=== PATIENT | female | born 1960 | race Caucasian/White ===

== ENCOUNTER 2016-09-05 07:14 | Inpatient (IN) ==
[2016-09-05] MEDS ORDERED: IOPAMIDOL 100 ML BOTTLE IV ONE (07:15)
[2016-09-05] MEDS ORDERED: 0.9 % SODIUM CHLORIDE 1,000 ML IV ONE ×3 (07:40→11:13)
[2016-09-05] MEDS ORDERED: ONDANSETRON 4 MG/2 ML VIAL IV ONE (08:05)
--- NOTE | 2016-09-05 08:09 | Emergency Department Note ---
General Adult HPI - General Chief complaint: Weakness Stated complaint: Weakness Time Seen by Provider: 09/05/16 08:03 Source: patient Mode of arrival: ambulatory Limitations: no limitations - History of Present Illness HPI Narrative: 56-year-old female comes in for elevated fever since the 11th or 5 days now. These are intermittent and cause aches myalgias. She complains of a headache as well but no cough congestion. Has some nausea but no vomiting. No diarrhea but she does complain of some recent constipation but she has IBS history. She is due for colonoscopy next week. Additionally she is hepatitis C positive and starting Harvoni soon. Did not get a flu shot last year - Related Data Previous Rx's Medication Instructions Recorded alprazolam 1 mg tablet 1 mg PO TID PRN 30 Days 05/17/16 estradiol 2 mg tablet 2 mg PO QDAY #30 tab 08/01/16 hydrocodone 7.5 mg-acetaminophen 1 tab PO Q6H PRN #120 tab 09/04/16 325 mg tablet Allergies Allergy/AdvReac Type Severity Reaction Status Date / Time No Known Drug Allergies Allergy Verified 09/05/16 07:18 Review of Systems All systems ED: reviewed and negative except as stated. Past Medical History - Past Medical History Attestation: Yes: The following information was validated with the patient. Medical history: Reports: other (HCV, IBS) Surgical history ED: Reports: hysterectomy, orthopedic, other (Left knee) - Social History smoking status: Former smoker (Quit 3 months ago) Physical Exam Normocephalic atraumatic. Conjunctive are clear sclerae nonicteric. No nasal discharge or congestion. Oropharynx pink moist. Posterior pharynx is clear. Neck is supple without lymphadenopathy or thyromegaly. Heart is regular rate and rhythm no murmurs appreciated. Lungs are clear to auscultation bilaterally without wheezes rales rhonchi or respiratory distress. Abdomen soft nontender nondistended. No peritoneal signs or guarding. No pedal edema. +2 radial pulse. Euthymic and appropriately interactive. No dysarthria ataxia or tremor. Alert and oriented - General Limitations: no limitations Course Vital Signs Temperature 100.7 F H 09/05/16 07:14 Pulse Rate 106 H 09/05/16 07:14 Respiratory Rate 18 09/05/16 07:14 Blood Pressure 101/72 09/05/16 07:14 Pulse Oximetry (%) 95 09/05/16 07:14 Temperature 100.7 F H 09/05/16 07:14 Pulse Rate 98 H 09/05/16 08:38 Respiratory Rate 18 09/05/16 07:14 Blood Pressure 94/58 09/05/16 08:36 Pulse Oximetry (%) 94 09/05/16 08:38 Medical Decision Making - Lab Data Lab results reviewed: Yes I reviewed the patient's lab results. Result diagrams: 09/05/16 07:45 09/05/16 07:45 Lab Results 09/05/16 09/05/16 09/05/16 Range/Units 07:45 07:45 07:45 WBC 23.5 H (4.5-11.0) K/mcL RBC 4.56 (4.00-5.20) M/mcL Hgb 14.1 (12.0-15.0) g/dL Hct 42.3 (36.0-48.0) % MCV 92.6 (80.0-100.0) fL MCH 31.0 (26.0-34.0) pg MCHC 33.5 (31.0-36.0) g/dL RDW 13.3 (11.5-14.5) % Plt Count 174 (140-440) K/mcL MPV 9.6 (7.4-10.4) fL Gran % 94.8 H (38.0-78.0) % Lymph % (Auto) 2.8 L (15.5-49.0) % [place] % (Auto) 1.8 (1.0-12.0) % Eos % (Auto) 0.5 (0.0-7.0) % Baso % (Auto) 0.1 (0.0-2.0) % Gran # 22.3 H (1.8-8.0) K/mcL Lymph # 0.7 L (1.5-4.8) K/mcL [place] # 0.4 (0.1-0.9) K/mcL Eos # 0.1 (0.0-0.7) K/mcL Baso # 0 (0.0-0.3) K/mcL VBG Lactic Acid 1.9 (0.5-2.2) mmol/L Sodium 138 (133-145) mmol/L Potassium 4.4 (3.3-5.1) mmol/L Chloride 102 (96-108) mmol/L Carbon Dioxide 22 (22-30) mmol/L Anion Gap 14.0 (8-16) BUN 11 (6-20) mg/dl Creatinine 0.9 (0.6-1.1) mg/dl GFR Calculation 70 Glucose 120 H (70-105) mg/dL Calcium 9.7 (8.6-10.4) mg/dl Total Bilirubin 0.5 (0.0-1.0) mg/dL AST 43 H (0-37) U/l ALT 40 (0-40) U/l Alkaline Phosphatase 47 (39-117) U/L Total Protein 7.5 (5.9-8.4) gm/dL Albumin 4.2 (3.2-5.2) gm/dL Globulin 3.3 (2.2-3.7) gm/dL Albumin/Globulin Ratio 1.3 (1.0-2.3) Urine Color Urine Appearance Urine pH (5.0-9.0) Ur Specific [place] (1.000-1.035) Urine Protein (NEG) mg/dL Urine Glucose (UA) (NEG) mg/dL Urine Ketones (NEG) mg/dL Urine Occult Blood (<0.03) mg/dL Urine Nitrate (NEG) Urine Bilirubin (NEG) mg/dL Urine Urobilinogen (NEG) mg/dL Ur Leukocyte Esterase (NEG) /uL Ur Culture Indicated? 09/05/16 Range/Units 08:13 WBC (4.5-11.0) K/mcL RBC (4.00-5.20) M/mcL Hgb (12.0-15.0) g/dL Hct (36.0-48.0) % MCV (80.0-100.0) fL MCH (26.0-34.0) pg MCHC (31.0-36.0) g/dL RDW (11.5-14.5) % Plt Count (140-440) K/mcL MPV (7.4-10.4) fL Gran % (38.0-78.0) % Lymph % (Auto) (15.5-49.0) % [place] % (Auto) (1.0-12.0) % Eos % (Auto) (0.0-7.0) % Baso % (Auto) (0.0-2.0) % Gran # (1.8-8.0) K/mcL Lymph # (1.5-4.8) K/mcL [place] # (0.1-0.9) K/mcL Eos # (0.0-0.7) K/mcL Baso # (0.0-0.3) K/mcL VBG Lactic Acid (0.5-2.2) mmol/L Sodium (133-145) mmol/L Potassium (3.3-5.1) mmol/L Chloride (96-108) mmol/L Carbon Dioxide (22-30) mmol/L Anion Gap (8-16) BUN (6-20) mg/dl Creatinine (0.6-1.1) mg/dl GFR Calculation Glucose (70-105) mg/dL Calcium (8.6-10.4) mg/dl Total Bilirubin (0.0-1.0) mg/dL AST (0-37) U/l ALT (0-40) U/l Alkaline Phosphatase (39-117) U/L Total Protein (5.9-8.4) gm/dL Albumin (3.2-5.2) gm/dL Globulin (2.2-3.7) gm/dL Albumin/Globulin Ratio (1.0-2.3) Urine Color Straw Urine Appearance Clear Urine pH 6.0 (5.0-9.0) Ur Specific [place] 1.003 (1.000-1.035) Urine Protein Neg (NEG) mg/dL Urine Glucose (UA) Negative (NEG) mg/dL Urine Ketones Neg (NEG) mg/dL Urine Occult Blood Neg (<0.03) mg/dL Urine Nitrate Neg (NEG) Urine Bilirubin Neg (NEG) mg/dL Urine Urobilinogen Neg (NEG) mg/dL Ur Leukocyte Esterase Neg (NEG) /uL Ur Culture Indicated? No Urinalysis point of care dipstick shows specific gravity 1.005 otherwise normal - Radiology Data Radiology results reviewed: Yes I reviewed the patient's radiology results. Chest x-ray is without acute abnormality - EKG Data EKG #1 EKG attestation: Yes I reviewed and interpreted this EKG. EKG results narrative: EKG shows a rate of 92 normal sinus rhythm without evidence of ischemia Disposition Summary: We will check patient out to Dr. martínez at shift change further disposition per him Disposition: Still a Patient Referrals: Ryan Chiu MD [Primary Care Provider] -
[2016-09-05 08:24] LABS: Basophils # (Auto) 0 K/mcL (0.0-0.3); Basophils % (Auto) 0.1 % (0.0-2.0); Eosinophils # (Auto) 0.1 K/mcL (0.0-0.7); Eosinophils % (Auto) 0.5 % (0.0-7.0); Granulocytes % (Auto) 94.8 % (38.0-78.0); Lymphocytes # (Auto) 0.7 K/mcL (1.5-4.8); Lymphocytes % (Auto) 2.8 % (15.5-49.0); Mean Cell Volume 92.6 fL (80.0-100.0); Mean Corpuscular HGB Conc 33.5 g/dL (31.0-36.0); Monocytes # (Auto) 0.4 K/mcL (0.1-0.9); Monocytes % (Auto) 1.8 % (1.0-12.0); Platelet Count 174 K/mcL (140-440); RBC 4.56 M/mcL (4.00-5.20); Red Cell Distribution Width 13.3 % (11.5-14.5)
--- NOTE | 2016-09-05 08:32 | XRay Report ---
HISTORY: Reason for Exam:fever FINDINGS: The lungs are clear. The heart, mediastinum, harjit and pleura are normal. IMPRESSION: Normal chest. Interpreted and Authenticated by: Nabor Gutiérrez 09/05/16
[2016-09-05 08:42] LABS: ALT/SGPT 40 U/l (0-40); Albumin 4.2 gm/dL (3.2-5.2); Albumin/Globulin Ratio 1.3 (1.0-2.3); Alkaline Phosphatase 47 U/L (39-117); Blood Urea Nitrogen 11 mg/dl (6-20)
[2016-09-05 08:59] LABS: Appearance,Urine CLEAR; Bilirubin,Urine NEG (NEG); Color,Urine STRAW; Glucose,Urine (UA) NEGATIVE (NEG); Leukocyte Esterase,Urine NEG /uL (NEG); Nitrate,Urine NEG (NEG); Protein,Urine NEG (NEG); Specific Gravity,Urine 1.003 (1.000-1.035); Urine Blood NEG mg/dL (<0.03); Urobilinogen,Urine NEG (NEG)
[2016-09-05] MEDS ORDERED: LEVOFLOXACIN 500 MG/100 ML BAG IV ONE (09:26)
[2016-09-05] MEDS: HYDROmorphone 2 MG/ML SYRINGE IV PRN ×5 (09:48→22:49)
[2016-09-05] MEDS ORDERED: PIPERACILLIN SODIUM/TAZOBACTAM 3.375 GM in DEXTROSE 5% IN WATER 50 ML IV SCH (10:30)
--- NOTE | 2016-09-05 10:35 | Emergency Department Note ---
General Adult HPI - General Chief complaint: Weakness Stated complaint: Weakness Time Seen by Provider: 09/05/16 08:03 Source: patient Mode of arrival: ambulatory Limitations: no limitations - Related Data Previous Rx's Medication Instructions Recorded alprazolam 1 mg tablet 1 mg PO TID PRN 30 Days 05/17/16 estradiol 2 mg tablet 2 mg PO QDAY #30 tab 08/01/16 hydrocodone 7.5 mg-acetaminophen 1 tab PO Q6H PRN #120 tab 09/04/16 325 mg tablet Allergies Allergy/AdvReac Type Severity Reaction Status Date / Time No Known Drug Allergies Allergy Verified 09/05/16 07:18 Past Medical History - Past Medical History Medical history: Reports: other (HCV, IBS) Surgical history ED: Reports: hysterectomy, orthopedic, other (Left knee) Physical Exam - General Limitations: no limitations Course Vital Signs Temperature 100.7 F H 09/05/16 07:14 Pulse Rate 106 H 09/05/16 07:14 Respiratory Rate 18 09/05/16 07:14 Blood Pressure 101/72 09/05/16 07:14 Pulse Oximetry (%) 95 09/05/16 07:14 Temperature 98.8 F 09/05/16 10:19 Pulse Rate 89 09/05/16 10:01 Respiratory Rate 17 09/05/16 10:01 Blood Pressure 111/68 09/05/16 10:01 Pulse Oximetry (%) 97 09/05/16 10:01 Medical Decision Making - [facility] Narrative Medical decision making narrative: This patient is worrisome for occult sepsis. Source is unclear as her urine and chest x-ray were normal. Have given her Levaquin and Zosyn and she will be admitted to telemetry to Dr. Pickard - Lab Data Lab results reviewed: Yes I reviewed the patient's lab results. Result diagrams: 09/05/16 07:45 09/05/16 07:45 Lab Results 09/05/16 09/05/16 09/05/16 Range/Units 07:45 07:45 07:45 WBC 23.5 H (4.5-11.0) K/mcL RBC 4.56 (4.00-5.20) M/mcL Hgb 14.1 (12.0-15.0) g/dL Hct 42.3 (36.0-48.0) % MCV 92.6 (80.0-100.0) fL MCH 31.0 (26.0-34.0) pg MCHC 33.5 (31.0-36.0) g/dL RDW 13.3 (11.5-14.5) % Plt Count 174 (140-440) K/mcL MPV 9.6 (7.4-10.4) fL Gran % 94.8 H (38.0-78.0) % Lymph % (Auto) 2.8 L (15.5-49.0) % [place] % (Auto) 1.8 (1.0-12.0) % Eos % (Auto) 0.5 (0.0-7.0) % Baso % (Auto) 0.1 (0.0-2.0) % Gran # 22.3 H (1.8-8.0) K/mcL Lymph # 0.7 L (1.5-4.8) K/mcL [place] # 0.4 (0.1-0.9) K/mcL Eos # 0.1 (0.0-0.7) K/mcL Baso # 0 (0.0-0.3) K/mcL VBG Lactic Acid 1.9 (0.5-2.2) mmol/L Sodium 138 (133-145) mmol/L Potassium 4.4 (3.3-5.1) mmol/L Chloride 102 (96-108) mmol/L Carbon Dioxide 22 (22-30) mmol/L Anion Gap 14.0 (8-16) BUN 11 (6-20) mg/dl Creatinine 0.9 (0.6-1.1) mg/dl GFR Calculation 70 Glucose 120 H (70-105) mg/dL Calcium 9.7 (8.6-10.4) mg/dl Total Bilirubin 0.5 (0.0-1.0) mg/dL AST 43 H (0-37) U/l ALT 40 (0-40) U/l Alkaline Phosphatase 47 (39-117) U/L Total Protein 7.5 (5.9-8.4) gm/dL Albumin 4.2 (3.2-5.2) gm/dL Globulin 3.3 (2.2-3.7) gm/dL Albumin/Globulin Ratio 1.3 (1.0-2.3) Urine Color Urine Appearance Urine pH (5.0-9.0) Ur Specific [place] (1.000-1.035) Urine Protein (NEG) mg/dL Urine Glucose (UA) (NEG) mg/dL Urine Ketones (NEG) mg/dL Urine Occult Blood (<0.03) mg/dL Urine Nitrate (NEG) Urine Bilirubin (NEG) mg/dL Urine Urobilinogen (NEG) mg/dL Ur Leukocyte Esterase (NEG) /uL Ur Culture Indicated? 09/05/16 Range/Units 08:13 WBC (4.5-11.0) K/mcL RBC (4.00-5.20) M/mcL Hgb (12.0-15.0) g/dL Hct (36.0-48.0) % MCV (80.0-100.0) fL MCH (26.0-34.0) pg MCHC (31.0-36.0) g/dL RDW (11.5-14.5) % Plt Count (140-440) K/mcL MPV (7.4-10.4) fL Gran % (38.0-78.0) % Lymph % (Auto) (15.5-49.0) % [place] % (Auto) (1.0-12.0) % Eos % (Auto) (0.0-7.0) % Baso % (Auto) (0.0-2.0) % Gran # (1.8-8.0) K/mcL Lymph # (1.5-4.8) K/mcL [place] # (0.1-0.9) K/mcL Eos # (0.0-0.7) K/mcL Baso # (0.0-0.3) K/mcL VBG Lactic Acid (0.5-2.2) mmol/L Sodium (133-145) mmol/L Potassium (3.3-5.1) mmol/L Chloride (96-108) mmol/L Carbon Dioxide (22-30) mmol/L Anion Gap (8-16) BUN (6-20) mg/dl Creatinine (0.6-1.1) mg/dl GFR Calculation Glucose (70-105) mg/dL Calcium (8.6-10.4) mg/dl Total Bilirubin (0.0-1.0) mg/dL AST (0-37) U/l ALT (0-40) U/l Alkaline Phosphatase (39-117) U/L Total Protein (5.9-8.4) gm/dL Albumin (3.2-5.2) gm/dL Globulin (2.2-3.7) gm/dL Albumin/Globulin Ratio (1.0-2.3) Urine Color Straw Urine Appearance Clear Urine pH 6.0 (5.0-9.0) Ur Specific [place] 1.003 (1.000-1.035) Urine Protein Neg (NEG) mg/dL Urine Glucose (UA) Negative (NEG) mg/dL Urine Ketones Neg (NEG) mg/dL Urine Occult Blood Neg (<0.03) mg/dL Urine Nitrate Neg (NEG) Urine Bilirubin Neg (NEG) mg/dL Urine Urobilinogen Neg (NEG) mg/dL Ur Leukocyte Esterase Neg (NEG) /uL Ur Culture Indicated? No - Radiology Data Radiology results reviewed: Yes I reviewed the patient's radiology results. Disposition Clinical Impression: Sepsis Disposition: Xfer As Outpt/Obs ([facility]) Condition: Good Referrals: Ryan Chiu MD [Primary Care Provider] - Time of Disposition: 10:35
[2016-09-05] MEDS ORDERED: NOREPINEPHRINE BITARTRATE 16 MG in 0.9 % SODIUM CHLORIDE 234 ML IV SCH ×2 (12:00→14:00)
[2016-09-05] MEDS ORDERED: 0.9 % SODIUM CHLORIDE 250 ML IV SCH (12:00)
--- NOTE | 2016-09-05 12:52 | Cat Scan Report ---
History: Fever, weakness and decreased bowel movements Technique: Patient was imaged following oral and intravenous contrast scanning from the thoracic inlet to the symphysis pubis. Sagittal and coronal reformats were created along with MIPS images of the chest. Chest: There is minor dependent atelectasis in the lateral basal segment right lower lobe. There are also a few tiny linear opacities in the lateral basal segment left lower lobe which could be scar or discoid atelectasis. The lungs are otherwise clear without evidence of pneumonia, mass or emphysema. There is no adenopathy or pleural effusion. In the pretracheal retrocaval space of the mediastinum there is a 1 x 1.3 cm lymph node. This is nonspecific. There are other smaller lymph nodes adjacent to the aortic arch. No hilar adenopathy is present. The heart is normal in size and contour. The aorta is normal in caliber. Pulmonary arteries appear normal. Abdomen or pelvis: There is mild generalized fatty infiltration of liver. The overall size liver is normal and there is no mass or dilatation of the ducts. The gallbladder is normal with no stones or thickening of the wall. Small hiatus hernia is present. The spleen pancreas adrenals and kidneys are normal. Was able to pass through normal stomach and small bowel to the distal ileum. The colon is filled with stool but is not abnormally distended. There is no apparent tumor in or adjacent to the colon. The appendix is noninflamed. There is no evidence of diverticulitis. The uterus and ovaries are been removed. The urinary bladder is unopacified but appears normal. There is a posterior bulging disc and spur formation at L4-5 along with arthritis in the facets causing mild spinal canal stenosis. Is also mild grade 1 spondylolisthesis at that level. Impression: 1.3 cm lymph node in the mediastinum. This is nonspecific but most likely a reactive lymph node. The chest is otherwise normal. Fatty infiltration of the liver Spinal canal stenosis at L4-5 Moderate fecal impaction Interpreted and Authenticated by: Nabor Gutiérrez 09/05/16
--- NOTE | 2016-09-05 13:04 | History and Physical Report ---
DATE OF ADMISSION: 09/05/2016 PRIMARY INSURANCE COORDINATOR: Eduardo Pedroza MD. PRIMARY CARE PHYSICIAN: Ryan Chiu MD. REASON FOR ADMISSION: Fever, generalized body aches, sepsis, weakness. HISTORY OF CHIEF COMPLAINT: This is a 56-year-old with known history of hepatitis C who is scheduled for treatment with Harvoni on 09/26 and is managed by Dr. Pedroza. However, patient over the last week has been experiencing significant weakness along with generalized body aches, arthralgia and fever. Symptoms have progressed to the point the patient is unable to function. She denies associated rash, diarrhea, dysuria, ENT symptoms, or sore throat. She further denies weight loss or glandular swelling. She was recently evaluated at her primary care physician with elevated white count of 13,000 and subsequently had another repeat CBC done yesterday, results of which are not available, but today in the ER white count was 23,000 and blood pressure of 80, along with low grade fever. Hospitalist Service was consulted. The patient had a CT abdomen and pelvis along with chest performed, results of which are pending. However, Hospitalist Service was consulted for admission in light of fever of unknown origin and sepsis with hypotension. At the time of examination, the patient is alert. She was able to provide some of the history. She denies any active distress. She endorses to mild headache along with fatigue. She denies history of alcoholism. She quit smoking roughly three months ago after a bout of URI. REVIEW OF SYSTEMS: Ten-point review of system was performed and negative except the ones discussed above. FAMILY HISTORY: History of lung cancer in mother, pancreatic cancer and colon cancer in father, SLE in sister. PAST MEDICAL HISTORY: 1. History of migraine. 2. Hyperlipidemia. 3. Hepatitis C, chronic. PAST SURGICAL HISTORY: 1. Hysterectomy in 1999. 2. Liver biopsy to 2001. CURRENT MEDICATIONS: Doses being verified. 1. Hydrocodone/acetaminophen. 2. Oxycodone. 3. Estradiol. PHYSICAL EXAMINATION: GENERAL: The patient is alert and oriented. BMI 24.6. Height 5 feet 1 inches. VITAL SIGNS: Blood pressure improved from 80 systolic to 106/72, respiration rate 14, temperature 98.8, pulse 91, sats 99% on 2 liters of oxygen. HEENT: Pupils symmetric. Oral cavity is dry. No icterus. No ear or nose discharge. NECK: No lymphadenopathy. HEART: S1, S2, regular rhythm. No murmur. LUNGS: Diminished breath sounds at bases. ABDOMEN: Soft. No obvious organomegaly, nontender, nondistended abdomen. LOWER EXTREMITIES: No cyanosis or clubbing. No joint swelling. SKIN: No suspicious lesions. PSYCHIATRIC: Alert and cooperative. No anxiety. NEURO: Nonfocal, moving all four extremities. LABS AND IMAGING: White count 23,500, hemoglobin 14.1, neutrophils 95%, and significant bandemia over 10%. Lactic acid 1.9, sodium 138, potassium 4.4, creatinine 0.9, BUN 11. LFTs unremarkable. CT abdomen and pelvis: Pending. UA: Pending. X-ray chest: No acute process. ASSESSMENT AND PLAN: A 56-year-old with fever of unknown origin over the last five days along with sepsis and bandemia. 1. Fever of unclear etiology. Start infectious along with connective tissue disorder workup, including ESR, CRP and blood cultures, urine, blood test, procalcitonin, strep, pneumo, urine antigen. Will include connective tissue workup if infectious workup is unremarkable and procalcitonin negative. 2. Sepsis and hypotension. Continue crystalloids and use pressors if indicated. Start broad antibiotic coverage, empiric coverage for gram negatives and MRSA, including vancomycin and Zosyn. 3. History of hepatitis C at baseline. Stable hepatic function. PLAN FOR TODAY: 1. Admit as telemetry. 2. Pressors if indicated. 3. FUO workup. 4. CT abdomen and pelvis/chest. AA:carlos Job ID: [id number] Doc ID: [id number] [facility]
[2016-09-05] MEDS ORDERED: HYDROCODONE/APAP 7.5/325MG TABLET PO PRN ×2 (13:14→17:05)
[2016-09-05] MEDS ORDERED: VANCOMYCIN PER PHARMACY IV SCH (13:14)
[2016-09-05] MEDS ORDERED: POTASSIUM CHLORIDE 20 MEQ PACKET PO PRN (13:14)
[2016-09-05] MEDS ORDERED: ACETAMINOPHEN 325 MG TABLET PO PRN (13:14)
[2016-09-05] MEDS ORDERED: MAGNESIUM SULFATE 2 GM/50 ML BAG IV PRN (13:14)
[2016-09-05] MEDS ORDERED: NOREPINEPHRINE BITARTRATE 16 MG in 0.9 % SODIUM CHLORIDE 234 ML IV PRN (14:00)
[2016-09-05 14:27] LABS: Creatine Kinase 33 IU/L (24-170); Myoglobin < 25 ng/ml (25-58)
[2016-09-05] MEDS: VANCOMYCIN 1,000 MG in 0.9 % SODIUM CHLORIDE 250 ML IV SCH (14:48)
[2016-09-05] MEDS: 0.9 % SODIUM CHLORIDE 1,000 ML IV SCH (14:48)
[2016-09-05] MEDS: 0.9 % SODIUM CHLORIDE 10 ML SYRINGE IV SCH ×2 (14:50→20:37)
[2016-09-05] MEDS: ONDANSETRON 4 MG/2 ML VIAL IV PRN ×2 (17:19→22:45)
[2016-09-05] MEDS: ALPRAZolam 0.5 MG TABLET PO PRN (17:58)
[2016-09-05] MEDS: PIPERACILLIN SODIUM/TAZOBACTAM 3.375 GM in DEXTROSE 5% IN WATER 50 ML IV SCH (18:01)
[2016-09-05] MEDS: HEPARIN 5,000 UNIT/ML VIAL SQ SCH (20:36)
[2016-09-05] MEDS: CYANOCOBALAMIN (VITAMIN B-12) 500 MCG TABLET PO SCH (20:37)
[2016-09-05] MEDS: DOCUSATE SODIUM 100 MG CAPSULE PO SCH (20:37)
[2016-09-05] MEDS ORDERED: SENNOSIDES/DOCUSATE SODIUM 1 TAB TABLET PO SCH (21:00)
[2016-09-05] MEDS ORDERED: traZODone HCL 50 MG TABLET PO PRN (21:00)
[2016-09-05] MEDS ORDERED: IBUPROFEN 200 MG TABLET PO PRN (22:26)
[2016-09-05] MEDS: IBUPROFEN 200 MG TABLET PO ONE ×2 (22:41→23:26)
[2016-09-06] MEDS: PIPERACILLIN SODIUM/TAZOBACTAM 3.375 GM in DEXTROSE 5% IN WATER 50 ML IV SCH ×4 (01:06→18:34)
[2016-09-06] MEDS: ALPRAZolam 0.5 MG TABLET PO PRN ×4 (03:45→22:01)
[2016-09-06] MEDS ORDERED: IBUPROFEN 200 MG TABLET PO ONE (04:01)
[2016-09-06 05:19] LABS: Mean Cell Volume 93.6 fL (80.0-100.0); Mean Corpuscular HGB Conc 33.9 g/dL (31.0-36.0); Mean Corpuscular Hemoglobin 31.7 pg (26.0-34.0); Platelet Count 130 K/mcL (140-440); RBC 3.79 M/mcL (4.00-5.20); Red Cell Distribution Width 13.8 % (11.5-14.5)
[2016-09-06 05:35] LABS: ALT/SGPT 31 U/l (0-40); Albumin 3.5 gm/dL (3.2-5.2); Albumin/Globulin Ratio 1.3 (1.0-2.3); Alkaline Phosphatase 38 U/L (39-117); Bilirubin,Direct < 0.2 mg/dL (0.0-0.3); Blood Urea Nitrogen 7 mg/dl (6-20); Gamma Glutamyl Transpeptidase 46 U/L (5-36); Uric Acid 2.4 mg/dL (2.5-8.0)
[2016-09-06] MEDS: 0.9 % SODIUM CHLORIDE 10 ML SYRINGE IV SCH ×5 (05:43→22:01)
[2016-09-06 06:19] LABS: Lymphocytes % 12 % (15-49); Monocytes % (Manual) 2 % (1-12); Platelet Estimate DECREASED (NORMAL); RBC Morphology NORMAL (NORMAL); Segmented Neutrophils % 83 % (38-78)
[2016-09-06] MEDS ORDERED: PANTOPRAZOLE 40 MG TABLET PO SCH (07:30)
[2016-09-06] MEDS ORDERED: MULTIVIT,THER IRON,CA,FA & MIN 1 TABLET PO SCH (09:00)
[2016-09-06] MEDS ORDERED: FOLIC ACID 1 MG TABLET PO SCH (09:00)
[2016-09-06] MEDS: DOCUSATE SODIUM 100 MG CAPSULE PO SCH ×2 (09:15→21:00)
[2016-09-06] MEDS: HEPARIN 5,000 UNIT/ML VIAL SQ SCH (09:16)
[2016-09-06] MEDS: VANCOMYCIN 1,000 MG in 0.9 % SODIUM CHLORIDE 250 ML IV SCH (09:17)
[2016-09-06] MEDS: 0.9 % SODIUM CHLORIDE 1,000 ML IV SCH ×2 (09:17→20:50)
[2016-09-06] MEDS: HYDROmorphone 2 MG/ML SYRINGE IV PRN (09:18)
[2016-09-06] MEDS: CYANOCOBALAMIN (VITAMIN B-12) 500 MCG TABLET PO SCH ×2 (09:22→21:01)
--- NOTE | 2016-09-06 10:01 | Internal Med Progress Note ---
Medical - PN: Subj Patient information: Note initiated : 09/06/16 at 9:57 am Service Date, if different from initiated Date: [] Patient: Senia Peralta 56 y/o F admitted on 09/05/16 for Weakness/Sepsis. Chief Complaint: [] Interval history: 09/05- patient with a history of hepatitis C admitted with fever of unknown origin over the last 1 week along with generalized myalgia and arthralgias without rash. No recent drug intake. Extensive workup pending including cultures/imaging. CT abdomen and pelvis chest unremarkable. mild headache. Started on broad antibiotic coverage. White count 20,000 with bandemia 09/06-keshawn count down to 10,000. Persistent headache and photophobia however patient endorses of history of migraine and pain similar to prior migraine attacks responding to Motrin. CSF study today to rule out meningitis. Transfer to medical floor as patient hemodynamic stable. complains of diffuse myalgias requiring hydrocodone and Dilaudid. - Constitutional Vitals: Vital Signs Temp Pulse Resp BP Pulse Ox 97.6 F 92 H 18 119/64 98 09/06/16 08:00 09/05/16 16:00 09/06/16 08:00 09/06/16 08:00 09/06/16 08:00 Period Temp Pulse Resp BP Sys/[place] Pulse Ox Last 24 Hr 97.6 F-99.0 F 78-92 16-18 104-124/64-83 92-98 Intake and Output 09/05/16 09/06/16 09/06/16 21:59 05:59 13:59 Intake Total 780 / 780 550 / 550 1404 / 1404 Output Total 750 / 750 1650 / 1650 Balance 30 / 30 -1100 / -1100 1404 / 1404 Weight 135 lb 14.4 oz Intake & Output: Intake & Output 09/05/16 09/06/16 09/06/16 21:59 05:59 13:59 Intake Total 780 / 780 550 / 550 1404 / 1404 Output Total 750 / 750 1650 / 1650 Balance 30 / 30 -1100 / -1100 1404 / 1404 Weight 135 lb 14.4 oz Intake: IV 300 / 300 50 / 50 924 / 924 Sodium Chloride 0.9% 1, 924 / 924 000 ml @ 50 mls/hr IV . Q20H [facility] Rx#:[id number] Zosyn 3.375 gm In 50 / 50 50 / 50 Dextrose 5% in Water 50 ml @ 100 mls/hr IV Q6H [facility] Rx#:[id number] Vancomycin 1,000 mg In 250 / 250 Sodium Chloride 0.9% 250 ml @ 250 mls/hr IV DAILY [facility] Rx#:[id number] Oral 480 / 480 500 / 500 480 / 480 Output: Void Amount 750 / 750 1450 / 1450 Emesis 200 / 200 Other: Meal Breakfast Percent of Meal Consumed 75% Feeding Ability Independent # Voids 4 # Bowel Movements 1 General appearance: cooperative, no acute distress Exam: mild anxiety lert oriented Nonlabored breathing Complains of headache/photophobia no pallor Medical - PN: Obj Da - Labs CBC & Chem 7: 09/06/16 03:55 09/06/16 03:55 Labs: Abnormal Lab Results 09/06/16 09/06/16 09/05/16 03:55 03:55 13:38 RBC 3.79 L Hct 35.5 L Plt Count 130 L Seg Neutrophils % 83 H Lymphocytes % 12 L Reactive Lymphocytes 3 H Glucose 110 H Uric Acid 2.4 L GGT 46 H Alkaline Phosphatase 38 L Myoglobin C-Reactive Protein 3.0 H 09/05/16 13:38 RBC Hct Plt Count Seg Neutrophils % Lymphocytes % Reactive Lymphocytes Glucose Uric Acid GGT Alkaline Phosphatase Myoglobin < 25 L C-Reactive Protein Meds: Medications Acetaminophen (Tylenol) 650 mg PO Q4-6HP PRN PRN Reason: PAIN/FEVER > 101 Acetaminophen/Hydrocodone Bitart ([place] 7.5/325mg) 1 - 2 tab PO Q4HP PRN PRN Reason: Pain Last Admin: 09/06/16 01:06 Dose: 1 tab Alprazolam (Xanax) 1 mg PO TIDP PRN PRN Reason: Anxiety Last Admin: 09/06/16 03:45 Dose: 1 mg Cyanocobalamin (Vitamin B-12) 1,000 mcg PO BID [facility] Stop: 09/10/16 09:01 Last Admin: 09/06/16 09:22 Dose: 1,000 mcg Docusate Sodium (Colace) 100 mg PO BID [facility] Last Admin: 09/06/16 09:15 Dose: 100 mg Folic Acid (Folic Acid) 1 mg PO DAILY [facility] Last Admin: 09/06/16 09:15 Dose: 1 mg Heparin Sodium (Porcine) (Heparin) 5,000 unit SQ Q12 [facility] Last Admin: 09/06/16 09:16 Dose: 5,000 unit Hydromorphone HCl (Dilaudid) 0.25 mg IV Q6HP PRN PRN Reason: Pain Last Admin: 09/06/16 09:18 Dose: 0.25 mg Magnesium Sulfate (Magnesium Sulfate) 2 gm in 50 mls @ 50 mls/hr IV UD PRN PRN Reason: MG = or < 1.7 Sodium Chloride (Sodium Chloride 0.9%) 1,000 mls @ 50 mls/hr IV .Q20H [facility] Stop: 09/08/16 01:13 Last Admin: 09/06/16 09:17 Dose: 50 mls/hr Piperacillin Sod/Tazobactam (Sod 3.375 gm/ Dextrose) 50 mls @ 100 mls/hr IV Q6H [facility] Last Admin: 09/06/16 05:35 Dose: 100 mls/hr Vancomycin HCl 1,000 mg/ (Sodium Chloride) 250 mls @ 250 mls/hr IV DAILY [facility] Last Admin: 09/06/16 09:17 Dose: 250 mls/hr Norepinephrine Bitartrate 16 (mg/ Sodium Chloride) 250 mls @ 9.37 mls/hr IV Q24HP PRN; Protocol; 10 MCG/MIN PRN Reason: Hypotension Ibuprofen (Motrin) 400 mg PO Q4HP PRN PRN Reason: Pain Last Admin: 09/06/16 09:20 Dose: 400 mg Iron Carb/Multivit/[place]/Folic Acid (Multivitamin W/Minerals) 1 tab PO DAILY [facility] Last Admin: 09/06/16 09:15 Dose: 1 tab Ondansetron HCl (Zofran) 4 mg IV Q4-6HP PRN PRN Reason: Nausea And Vomiting Last Admin: 09/05/16 22:45 Dose: 4 mg Pantoprazole Sodium (Protonix) 40 mg PO QAMAC [facility] Last Admin: 09/06/16 09:15 Dose: 40 mg Potassium Chloride (Klor-Con) 40 meq PO DAILYP PRN PRN Reason: K+ < 3.5 Senna/Docusate Sodium (Senna Plus Tablet) 1 tab PO HS [facility] Last Admin: 09/05/16 20:37 Dose: 1 tab Sodium Chloride (Saline Flush) 10 ml IV Q8 [facility] Last Admin: 09/06/16 05:43 Dose: Not Given Trazodone HCl (Desyrel) 50 mg PO HSP PRN PRN Reason: Insomnia Vancomycin HCl (Vancomycin Per Pharmacy) 1 order IV UD [facility] Medical - PN: A/P - Time Spent With Patient Total time spent is greater than 50% in coordination of care (as documented) at patient's floor/unit and/or counseling patient: 25 - 35 minutes (1) Fever, unknown origin Status: Acute Assessment and plan: * Fever of unknown origin- negatives CT chest abdomen pelvis, negative pancultures. CSF studies ordered. Normal ESR/CRP. Pro calcitonin minimally elevated at 0.72 * sepsis-clinically improved. White count down from 20,000-10 * History of hep C-stable synthetic function * DJD on opioids * Anxiety disorder on alprazolam * Full CODE STATUS plan * Transfer to medical floor * Lumbar puncture studies * pre-existing medical condition management as above Current Visit: Yes Medical - PN: Qual - VTE Deep Vein Thrombosis/Pulmonary Embolism Present on Admission: No
[2016-09-06] MEDS ORDERED: MAGNESIUM SULFATE 2 GM/50 ML BAG IV PRN (12:36)
[2016-09-06] MEDS ORDERED: traZODone HCL 50 MG TABLET PO PRN (12:36)
[2016-09-06] MEDS ORDERED: HYDROmorphone 2 MG/ML SYRINGE IV PRN (12:36)
[2016-09-06] MEDS ORDERED: ONDANSETRON 4 MG/2 ML VIAL IV PRN (12:36)
[2016-09-06] MEDS ORDERED: POTASSIUM CHLORIDE 20 MEQ PACKET PO PRN (12:36)
[2016-09-06] MEDS ORDERED: IBUPROFEN 200 MG TABLET PO PRN (12:36)
[2016-09-06] MEDS ORDERED: NOREPINEPHRINE BITARTRATE 16 MG in 0.9 % SODIUM CHLORIDE 234 ML IV PRN (12:36)
[2016-09-06] MEDS ORDERED: HYDROCODONE/APAP 7.5/325MG TABLET PO PRN (12:36)
[2016-09-06] MEDS ORDERED: VANCOMYCIN PER PHARMACY IV SCH (12:36)
[2016-09-06] MEDS ORDERED: ACETAMINOPHEN 325 MG TABLET PO PRN (12:36)
--- NOTE | 2016-09-06 15:21 | XRay Report ---
HISTORY: Reason for Exam:r/o meningitis FINDINGS: The procedure risks were explained the patient consented. The skin over the lower back was prepped with Betadine and then anesthetized with 1% lidocaine. Using fluoroscopic guidance a 22-gauge needle was inserted into the spinal canal at the L2-3 level. The opening pressure was 18 cm, which is normal. After obtaining the opening pressure, the flow of spinal fluid slowed significantly. With significant delay, 3 cc of clear CSF was removed and sent to laboratory for analysis. IMPRESSION: Successful lumbar puncture obtaining 3 cc of clear CSF Interpreted and Authenticated by: Nabor Gutiérrez 09/06/16
[2016-09-06 16:06] LABS: Glucose,CSF 69 mg/dL (45-75)
[2016-09-06 16:37] LABS: Appearance,CSF CLEAR; Nucleated Cells,CSF 1 /cumm (0-5); Red Blood Cell,CSF 3 /cumm (0-1)
[2016-09-06] MEDS ORDERED: HEPARIN 5,000 UNIT/ML VIAL SQ SCH (21:00)
[2016-09-06] MEDS ORDERED: SENNOSIDES/DOCUSATE SODIUM 1 TAB TABLET PO SCH (21:00)
[2016-09-07] MEDS: PIPERACILLIN SODIUM/TAZOBACTAM 3.375 GM in DEXTROSE 5% IN WATER 50 ML IV SCH ×2 (00:14→05:41)
[2016-09-07 05:21] LABS: ALT/SGPT 35 U/l (0-40); Albumin 3.3 gm/dL (3.2-5.2); Albumin/Globulin Ratio 1.2 (1.0-2.3); Alkaline Phosphatase 35 U/L (39-117); Bilirubin,Direct < 0.2 mg/dL (0.0-0.3); Blood Urea Nitrogen 9 mg/dl (6-20); Gamma Glutamyl Transpeptidase 54 U/L (5-36); Magnesium 2.1 mg/dL (1.6-2.5); Mean Cell Volume 93.7 fL (80.0-100.0); Mean Corpuscular HGB Conc 33.7 g/dL (31.0-36.0); Mean Corpuscular Hemoglobin 31.6 pg (26.0-34.0); Platelet Count 120 K/mcL (140-440); RBC 3.91 M/mcL (4.00-5.20); Red Cell Distribution Width 13.9 % (11.5-14.5); Uric Acid 2.4 mg/dL (2.5-8.0)
[2016-09-07] MEDS: 0.9 % SODIUM CHLORIDE 10 ML SYRINGE IV SCH (05:42)
[2016-09-07 07:09] LABS: Basophils % (Manual) 1 % (0-2); Eosinophils % (Manual) 5 % (0-7); Lymphocytes % 50 % (15-49); Monocytes % (Manual) 11 % (1-12); Platelet Estimate NORMAL (NORMAL); RBC Morphology NORMAL (NORMAL); Segmented Neutrophils % 33 % (38-78)
--- NOTE | 2016-09-07 07:27 | Internal Med Progress Note ---
Medical - PN: Subj Patient information: Note initiated : 09/07/16 at 7:25 am Service Date, if different from initiated Date: [] Patient: Senia Peralta 56 y/o F admitted on 09/05/16 for Weakness/Sepsis. Chief Complaint: [] Interval history: 09/05- patient with a history of hepatitis C admitted with fever of unknown origin over the last 1 week along with generalized myalgia and arthralgias without rash. No recent drug intake. Extensive workup pending including cultures/imaging. CT abdomen and pelvis chest unremarkable. mild headache. Started on broad antibiotic coverage. White count 20,000 with bandemia 09/06-keshawn count down to 10,000. Persistent headache and photophobia however patient endorses of history of migraine and pain similar to prior migraine attacks responding to Motrin. CSF study today to rule out meningitis. Transfer to medical floor as patient hemodynamic stable. complains of diffuse myalgias requiring hydrocodone and Dilaudid. 09/07-CSF studies negative. Patient feeling a lot better. Afebrile with resolution of myalgia and arthralgia. possible discharge in 24 hours with outpatient PCP follow-up. No overnight fever chills nausea vomiting or SOB - Constitutional Vitals: Vital Signs Temp Pulse Resp BP Pulse Ox 97.2 F 78 16 146/76 98 09/07/16 06:27 09/07/16 04:00 09/07/16 06:27 09/07/16 06:27 09/07/16 06:27 Period Temp Pulse Resp BP Sys/[place] Pulse Ox Last 24 Hr 97.1 F-97.6 F 47-78 16-18 117-146/64-99 90-99 Intake and Output 09/06/16 09/07/16 09/07/16 21:59 05:59 13:59 Intake Total 530 / 530 290 / 290 Balance 530 / 530 290 / 290 Weight 138 lb 4.8 oz Intake & Output: Intake & Output 09/06/16 09/07/16 09/07/16 21:59 05:59 13:59 Intake Total 530 / 530 290 / 290 Balance 530 / 530 290 / 290 Weight 138 lb 4.8 oz Intake: IV 50 / 50 50 / 50 Zosyn 3.375 gm In 50 / 50 50 / 50 Dextrose 5% in Water 50 ml @ 100 mls/hr IV Q6H [facility] Rx#:[id number] Oral 480 / 480 240 / 240 Other: Meal Lunch Percent of Meal Consumed 75% Feeding Ability Independent # Voids 1 1 # Bowel Movements 1 1 General appearance: cooperative, no acute distress Exam: no palpable lymphedema no anxiety No joint swelling nonlabored breathing Medical - PN: Obj Da - Labs CBC & Chem 7: 09/07/16 03:33 09/07/16 03:33 Labs: Abnormal Lab Results 09/07/16 09/07/16 09/06/16 03:33 03:33 15:21 RBC 3.91 L Hct Plt Count 120 L Seg Neutrophils % 33 L Lymphocytes % 50 H Reactive Lymphocytes Potassium 5.2 H Glucose Uric Acid 2.4 L GGT 54 H Alkaline Phosphatase 35 L Myoglobin C-Reactive Protein Triglycerides 162 H CSF RBC 3 H 09/06/16 09/06/16 09/05/16 03:55 03:55 13:38 RBC 3.79 L Hct 35.5 L Plt Count 130 L Seg Neutrophils % 83 H Lymphocytes % 12 L Reactive Lymphocytes 3 H Potassium Glucose 110 H Uric Acid 2.4 L GGT 46 H Alkaline Phosphatase 38 L Myoglobin C-Reactive Protein 3.0 H Triglycerides CSF RBC 09/05/16 13:38 RBC Hct Plt Count Seg Neutrophils % Lymphocytes % Reactive Lymphocytes Potassium Glucose Uric Acid GGT Alkaline Phosphatase Myoglobin < 25 L C-Reactive Protein Triglycerides CSF RBC Meds: Medications Acetaminophen (Tylenol) 650 mg PO Q4-6HP PRN PRN Reason: PAIN/FEVER > 101 Acetaminophen/Hydrocodone Bitart ([place] 7.5/325mg) 1 - 2 tab PO Q4HP PRN PRN Reason: Pain Alprazolam (Xanax) 1 mg PO TIDP PRN PRN Reason: Anxiety Last Admin: 09/06/16 22:01 Dose: 1 mg Cyanocobalamin (Vitamin B-12) 1,000 mcg PO BID [facility] Stop: 09/09/16 09:01 Last Admin: 09/06/16 21:01 Dose: 1,000 mcg Docusate Sodium (Colace) 100 mg PO BID [facility] Last Admin: 09/06/16 21:00 Dose: 100 mg Folic Acid (Folic Acid) 1 mg PO DAILY [facility] Fondaparinux (Arixtra) 2.5 mg SQ DAILY [facility] Hydromorphone HCl (Dilaudid) 0.25 mg IV Q6HP PRN PRN Reason: Pain Magnesium Sulfate (Magnesium Sulfate) 2 gm in 50 mls @ 50 mls/hr IV UD PRN PRN Reason: MG = or < 1.7 Norepinephrine Bitartrate 16 (mg/ Sodium Chloride) 250 mls @ 9.37 mls/hr IV Q24HP PRN; Protocol; 10 MCG/MIN PRN Reason: Hypotension Sodium Chloride (Sodium Chloride 0.9%) 1,000 mls @ 50 mls/hr IV .Q20H [facility] Stop: 09/08/16 01:13 Last Admin: 09/06/16 20:50 Dose: Not Given Piperacillin Sod/Tazobactam (Sod 3.375 gm/ Dextrose) 50 mls @ 100 mls/hr IV Q6H [facility] Last Admin: 09/07/16 05:41 Dose: 100 mls/hr Vancomycin HCl 1,000 mg/ (Sodium Chloride) 250 mls @ 250 mls/hr IV Q24H [facility] Ibuprofen (Motrin) 400 mg PO Q4HP PRN PRN Reason: Pain Iron Carb/Multivit/Fuse Maker/Folic Acid (Multivitamin W/Minerals) 1 tab PO DAILY [facility] Ondansetron HCl (Zofran) 4 mg IV Q4-6HP PRN PRN Reason: Nausea And Vomiting Pantoprazole Sodium (Protonix) 40 mg PO QAMAC [facility] Potassium Chloride (Klor-Con) 40 meq PO DAILYP PRN PRN Reason: K+ < 3.5 Senna/Docusate Sodium (Senna Plus Tablet) 1 tab PO HS [facility] Last Admin: 09/06/16 21:00 Dose: 1 tab Sodium Chloride (Saline Flush) 10 ml IV Q8 [facility] Last Admin: 09/07/16 05:42 Dose: 10 ml Trazodone HCl (Desyrel) 50 mg PO HSP PRN PRN Reason: Insomnia Vancomycin HCl (Vancomycin Per Pharmacy) 1 order IV UD [facility] Medical - PN: A/P - Time Spent With Patient Total time spent is greater than 50% in coordination of care (as documented) at patient's floor/unit and/or counseling patient: 15 - 24 minutes (1) Fever, unknown origin Status: Acute Assessment and plan: * Fever of unknown origin- negative Extensive workup including cultures/CT chest abdomen pelvis, negative . CSF studies unremarkable Normal ESR/CRP. Pro calcitonin minimally elevated at 0.72. social oral antibiotics and possible discharge in 24 hours * Sepsis-clinically improved. White count down from 20->10->6 with resolution of left shift * History of hep C-stable synthetic function. follow-up with GI for hep C treatment as outpatient * DJD on opioids * Anxiety disorder on alprazolam * Full CODE STATUS plan * possible discharge in 24 hours * Transition to oral antibiotics and discharge * pre-existing medical condition management as above Current Visit: Yes Medical - PN: Qual - VTE Deep Vein Thrombosis/Pulmonary Embolism Present on Admission: No
[2016-09-07] MEDS ORDERED: PANTOPRAZOLE 40 MG TABLET PO SCH (07:30)
--- NOTE | 2016-09-07 07:59 | Discharge Summary ---
Medical - DS: Prov Patient information: Note initiated : 09/07/16 at 7:56 am Service Date, if different from initiated Date: [] Patient: Senia Peralta 56 y/o F admitted on 09/05/16 for Weakness/Sepsis. Chief Complaint: [] Date of admission: 09/05/16 13:01 Discharge date: 09/07/16 Primary care physician: Ryan Chiu Medical - DS: Meds - Discharge Medications Prescriptions: Amoxicillin/Potassium Clav [Augmentin] 875 mg PO Q12H #10 tablet Active and Home Medications: Home Medications alprazolam 1 mg tablet 1 mg PO TID PRN 30 Days 05/17/16 [Rx Confirmed 09/05/16 Last Taken Unknown] estradiol 2 mg tablet 2 mg PO QDAY #30 tab 08/01/16 [Rx Confirmed 09/05/16 Last Taken Unknown] hydrocodone 7.5 mg-acetaminophen 325 mg tablet 1 tab PO Q6H PRN #120 tab [Rx Confirmed 09/05/16 Last Taken Unknown] Amoxicillin/Potassium Clav [Augmentin] 875 mg PO Q12H #10 tablet 09/07/16 [Rx Last Taken Unknown] Medical - DS: Hosp Hospital course: DISCHARGE DIAGNOSES * Fever of unknown origin- negative extensive workup including cultures/CT chest abdomen pelvis, negative . CSF studies unremarkable Normal ESR/CRP. Pro calcitonin minimally elevated at 0.72. discharge on oral antibiotics. Patient feels at baseline * Sepsis-clinically improved. White count down from 23.5->10->6 with resolution of left shift * History of hep C-stable synthetic function. follow-up with GI for hep C treatment as outpatient * DJD on opioids * Anxiety disorder on alprazolam BRIEF HOSPITAL COURSE 09/05- patient with a history of hepatitis C admitted with fever of unknown origin over the last 1 week along with generalized myalgia and arthralgias without rash. No recent drug intake. Extensive workup pending including cultures/imaging. CT abdomen and pelvis chest unremarkable. mild headache. Started on broad antibiotic coverage. White count 23.5 with bandemia 09/06-keshawn count down to 10,000. Persistent headache and photophobia however patient endorses of history of migraine and pain similar to prior migraine attacks responding to Motrin. CSF study today to rule out meningitis. Transfer to medical floor as patient hemodynamic stable. complains of diffuse myalgias requiring hydrocodone and Dilaudid. 09/07-CSF studies negative. Patient feeling a lot better. Afebrile with resolution of myalgia and arthralgia. patient requesting discharge as she feels at baseline.discharge with outpatient PCP /gastroenterology follow-up. No overnight fever chills nausea vomiting or SOB. Discharge diagnosis: . - Time Spent with Patient Total time spent providing and/or coordinating discharge services: Greater than 30 minutes Medical - DS: Exam - Constitutional Vitals: Vital Signs Temp Pulse Pulse Resp BP BP Pulse Ox 09/07/16 06:27 97.2 F 16 146/76 98 09/07/16 04:00 97.5 F 78 16 138/77 93 09/06/16 22:10 97.5 F 72 16 131/99 94 09/06/16 16:27 49 L 90 09/06/16 16:26 47 L 122/76 90 09/06/16 16:00 97.6 F 16 122/76 90 09/06/16 11:50 55 L 117/72 91 09/06/16 11:49 52 L 90 09/06/16 11:48 97.1 F 55 L 16 117/72 91 09/06/16 10:20 16 95 09/06/16 08:31 119/64 09/06/16 08:01 16 119/73 99 09/06/16 08:00 97.6 F 18 119/64 98 Intake and Output 09/06/16 09/07/16 09/07/16 21:59 05:59 13:59 Intake Total 530 / 530 290 / 290 Balance 530 / 530 290 / 290 Intake: IV 50 / 50 50 / 50 Zosyn 3.375 gm In 50 / 50 50 / 50 Dextrose 5% in Water 50 ml @ 100 mls/hr IV Q6H [facility] Rx#:[id number] Oral 480 / 480 240 / 240 Other: Meal Lunch Percent of Meal Consumed 75% Feeding Ability Independent # Voids 1 1 # Bowel Movements 1 1 Weight 138 lb 4.8 oz General appearance: cooperative, no acute distress Medical - DS: Data Labs on day of discharge: Labs from last 24 hours 09/07/16 09/07/16 09/06/16 03:33 03:33 15:21 WBC 5.8 RBC 3.91 L Hgb 12.3 Hct 36.6 MCV 93.7 MCH 31.6 MCHC 33.7 RDW 13.9 Plt Count 120 L MPV 9.6 Total Counted 100 Seg Neutrophils % 33 L Band Neutrophils % Not Reportable Lymphocytes % 50 H Monocytes % (Manual) 11 Eosinophils % (Manual) 5 Basophils % (Manual) 1 Platelet Estimate Normal RBC Morphology Normal Sodium 142 Potassium 5.2 H Chloride 108 Carbon Dioxide 26 Anion Gap 8.0 BUN 9 Creatinine 1.1 GFR Calculation 55 Glucose 97 Uric Acid 2.4 L Calcium 9.1 Phosphorus 3.6 Magnesium 2.1 Total Bilirubin 0.3 Direct Bilirubin < 0.2 GGT 54 H AST 29 ALT 35 Alkaline Phosphatase 35 L Lactate Dehydrogenase 131 Total Protein 6.1 Albumin 3.3 Globulin 2.8 Albumin/Globulin Ratio 1.2 Triglycerides 162 H CSF Source Tube 2 of 2 CSF Appearance Clear CSF Color Colorless CSF RBC 3 H CSF Diff Total Count TNP CSF Total Nucleated Auto 1 CSF Neutrophils CSF Lymphocytes Not Reportable CSF Reactive Lymphs Not Reportable CSF Monocytes Not Reportable CSF Eosinophils % Not Reportable CSF Basophils Not Reportable CSF Macrophages Not Reportable CSF Plasma Cells Not Reportable CSF Diff Comment Not Reportable CSF Glucose 69 CSF Total Protein 25 Medical - DS: A/P - Patient/Caregiver Discharge Instructions Activity: increase activity as tolerated Diet: Regular Diet Additional Instructions: follow-up with GI Dr. Phillips for hep C management follow up PCP in in 5-7 days Continue antibiotics for additional 5 days Return to ER if worsening fever and arthralgia nausea vomiting diarrhea Review risk and side effect profile of medications including antibiotics. Side effect may include mild to severe reaction including rash, diarrhea, cdiff and even which can be prevented by close follow-up with PCP and monitoring for side effects Refrain from smoking and alcohol Continue diet and activity as advised Discussed importance of medication adherence Please review medication list with patient prior to discharge Please schedule follow-up with PCP/Providers prior to discharge and provide printouts Portions of this chart may have been created with [facility] voice recognition software. Occasional wrong-word or ?sound-like? substitutions may have occurred due to the inherent limitations of voice recognition software. Please read the chart carefully and recognize, using context, where the substitutions have occurred. CC- PCP Prescriptions: Amoxicillin/Potassium Clav [Augmentin] 875 mg PO Q12H #10 tablet - Problem Maintenance (1) Fever, unknown origin Status: Acute - Follow up Plan Follow up with: Ryan Chiu MD [Primary Care Provider] - Disposition: Home, Self-Care Prognosis: Fair Rehab Potential: Fair I certify that the patient requires SNF services: No Overall status at discharge: patient is progressing back to baseline Medical - DS: Qual - VTE Deep Vein Thrombosis/Pulmonary Embolism Present on Admission: No
[2016-09-07] MEDS: CYANOCOBALAMIN (VITAMIN B-12) 500 MCG TABLET PO SCH (08:15)
[2016-09-07] MEDS: DOCUSATE SODIUM 100 MG CAPSULE PO SCH (08:18)
[2016-09-07] MEDS: 0.9 % SODIUM CHLORIDE 1,000 ML IV SCH (08:18)
[2016-09-07] MEDS ORDERED: VANCOMYCIN 1,000 MG in 0.9 % SODIUM CHLORIDE 250 ML IV SCH (09:00)
[2016-09-07] MEDS ORDERED: FONDAPARINUX SODIUM 2.5 MG/0.5 ML SYRINGE SQ SCH (09:00)
[2016-09-07] MEDS ORDERED: FOLIC ACID 1 MG TABLET PO SCH (09:00)
[2016-09-07] MEDS ORDERED: MULTIVIT,THER IRON,CA,FA & MIN 1 TABLET PO SCH (09:00)
== END 2016-09-07 11:29 | disposition home or self-care (01) | DRG 872 ==
LOC: ED 07:14 → ICU 13:01
PROVIDERS: ADMIT Internal Medicine; ATTEND Internal Medicine